=== PATIENT | female | born 1985 | race Caucasian/White ===

== ENCOUNTER → 2016-06-23 | Day surgery (SDC) | payer OTHER ==
--- NOTE | ~2016-06-23 | OR ---
Unit #: [id number] #: [id number] Patient: BRIONNA KWAN [id number] [address] [place], [place] [address] [id number] MR#: [id number] NAME: BRIONNA KWAN ROOM: Date of Procedure: 06/23/2016 Admission Date: 06/23/2016 Surgeon: Zev Han M.D. : 1985 Attending Physician: Zev Han M.D. Referring Physician: Zev Han M.D. Primary Care Physician: Primary Care Physician No OPERATIVE REPORT PREOPERATIVE DIAGNOSIS Right ureteral stone. POSTOPERATIVE DIAGNOSIS Right ureteral stone. PROCEDURES PERFORMED Right rigid ureteroscopy, holmium laser lithotripsy, basket extraction of fragments, and placement of double-J ureteral stent with external tether. ANESTHESIA General with local supplementation. INDICATIONS FOR SURGERY This is a 31-year-old woman with a 2-day history of severe unrelenting flank pain, nausea, and vomiting, presented to the office and requested the above procedure. DESCRIPTION OF PROCEDURE The patient was given preoperative Kefzol and satisfactory general anesthesia. She was positioned in dorsal lithotomy and the genitalia were prepped and draped. The 21-Tai[place]ese rigid cystoscope was introduced with a 30-degree lens and video noting a normal bladder containing no stone and a moderately large right ureteral orifice. The stone was seen fluoroscopically in the right hemipelvis. A Sensor guidewire was passed easily beyond the stone. A rigid ureteroscope was able to enter the orifice, but the point of greatest progress of the stone was too narrow to pass the scope atraumatically. Therefore, I dilated over the guidewire with Lubriglide, sizes 8, 10, and 12 and then passed the ureteroscope up to where the stone had fallen back. It was an irregular, bosselated, yellow stone, which broke easily with a 365 nanometer laser fiber at settings of 12 and 0.6. Several pieces were basket extracted and the remainder irrigated out. There was mucosal trauma from the site of impaction less than 20% of the diameter of the ureter and with no active bleeding. So, a simple routine stent was elected and I placed a 26 x 6 double-J stent in excellent position cystoscopically and fluoroscopically. The bladder was drained. The cystoscope removed. The stent string shortened, knotted, and tucked within the vagina and a Uro-jet applied. Discharge this evening is anticipated with stent removal in 4 days. Unit #: [id number] #: [id number] Patient: BRIONNA KWAN Dictated by... Ashlee Contreras/jeyson TD: 06/24/2016 15:02 JOB #: [id number] OPERATIVE REPORT X Zev Han MD X PROCEDURE OPERATIVE NOTE
== END | disposition home or self-care (01) ==
LOC: CSUR 17:19
PROVIDERS: Urology
DX: N20.1 Calculus of ureter (principal); Z87.442 Personal history of urinary calculi; Z98.890 Other specified postprocedural states; F17.210 Nicotine dependence, cigarettes, uncomplicated; Z82.49 Family history of ischemic heart disease and other diseases of the circulatory system
CPT/HCPCS: 82365; 88300; C2617; J0330; J0690; J1100; J2250; J2405; J3010